=== PATIENT | male | born 1940 | race Caucasian/White ===

== ENCOUNTER → 2016-09-24 | Outpatient (CLI) | payer OTHER | LOC: RT 13:22 | DX: I10 Essential (primary) hypertension (principal); Z88.5 Allergy status to narcotic agent | CPT/HCPCS: 93005 ==

== ENCOUNTER → 2020-08-05 | Outpatient (CLI) | payer OTHER, MEDICARE | LOC: KOH-I 12:19 | DX: S49.91XA Unspecified injury of right shoulder and upper arm, initial encounter (principal); W19.XXXA Unspecified fall, initial encounter; M19.011 Primary osteoarthritis, right shoulder | CPT/HCPCS: 73030 ==

== ENCOUNTER → 2020-08-07 | Outpatient (CLI) | payer OTHER, MEDICARE | LOC: MRI 10:36 | DX: S46.111A Strain of muscle, fascia and tendon of long head of biceps, right arm, initial encounter (principal); M79.631 Pain in right forearm; X58.XXXA Exposure to other specified factors, initial encounter | CPT/HCPCS: 73218 ==

== ENCOUNTER → 2021-04-30 | Outpatient (CLI) | payer OTHER, MEDICARE | LOC: KOH-I 10:33 | DX: M25.551 Pain in right hip (principal); M25.561 Pain in right knee; M16.11 Unilateral primary osteoarthritis, right hip | CPT/HCPCS: 73502; 73560 ==

== ENCOUNTER → 2021-06-16 | Outpatient (CLI) | payer OTHER, MEDICARE | LOC: KOH-I 08:52 | DX: H53.8 Other visual disturbances (principal); R42 Dizziness and giddiness; R26.89 Other abnormalities of gait and mobility; S09.90XA Unspecified injury of head, initial encounter; W19.XXXA Unspecified fall, initial encounter | CPT/HCPCS: 70450 ==